=== PATIENT | male | born 1965 | race African-American/Black ===

== ENCOUNTER 2019-04-15 22:04 | Emergency (ER) | payer OTHER ==
[2019-04-16] MEDS ORDERED: IBUPROFEN 600 MG TAB PO STA (00:26)
[2019-04-16] MEDS ORDERED: DIPH,PERTUS(ACELL)TETVAC-LF 0.5 ML VIAL IM ONE (00:30)
[2019-04-16] MEDS ORDERED: LIDOCAINE 1% INJ 10MG/ML (20 ML MDV) SQ ONE (00:38)
--- NOTE | 2019-04-16 01:09 | XR ---
EXAM: XR Right Hand Complete, 3 or More Views CLINICAL HISTORY: Pain. Still mesh cut hand. TECHNIQUE: Frontal, lateral and oblique views of the right hand. COMPARISON: No relevant prior studies available. FINDINGS: Bones/joints: No acute fracture. No dislocation. Soft tissues: Soft tissue defect projecting at base of small finger. No radiopaque foreign body. IMPRESSION: 1. Soft tissue defect projecting at base of right small finger. Correlate clinically. 2. No radiographic evidence of radiopaque foreign body. 3. No acute fracture or dislocation.
[2019-04-16 01:12] VITALS: BP 120/78; PULSE 64; RESP 16; TEMP 97.6
--- NOTE | 2019-04-16 01:14 | ED ---
Wound/Laceration HPI - General Chief Complaint: Wound/Laceration Stated Complaint: finger injury-[facility] Time Seen by Provider: 04/15/19 23:36 Source: patient Mode of arrival: ambulatory Limitations: no limitations - History of Present Illness Initial Comments: 54-year-old male patient presents to the emergency department today for evaluation of laceration to the right hand. Patient states that he was at work when a piece of steel mesh fell on his hand causing a laceration. Patient states he was able to get the bleeding under control. States injury occurred approximately 4 hours ago. Patient states he was able to clean the wound and keep it covered with gauze. Patient is unsure when his last tetanus vaccine was given. Denies any difficulty with range of motion of the hand. Denies any numbness or tingling to the fingers. Denies any other injuries. Patient denies any headache, neck pain, back pain, chest pain, shortness of breath, dizziness, weakness, abdominal pain, nausea, vomiting, or difficulties with bowel movements or urination. - Related Data Home Medications Medication Instructions Recorded Confirmed No Known Home Medications 04/15/19 04/15/19 Allergies Allergy/AdvReac Type Severity Reaction Status Date / Time No Known Allergies Allergy Verified 04/15/19 23:40 Review of Systems ROS Statement: Those systems with pertinent positive or pertinent negative responses have been documented in the HPI. ROS Other: All systems not noted in ROS Statement are negative. Past Medical History Past Medical History: No Reported History History of Any Multi-Drug Resistant Organisms: None Reported Past Surgical History: Orthopedic Surgery Additional Past Surgical History / Comment(s): lt knee Past Psychological History: No Psychological Hx Reported Smoking Status: Current every day smoker Past Alcohol Use History: None Reported Past Drug Use History: None Reported General Exam Limitations: no limitations General appearance: alert, in no apparent distress, other (This is a well- developed, well-nourished adult male patient in no acute distress. Vital signs upon presentation are temperature 98.2F, pulse 72, respirations 20, blood pressure 121/76, pulse ox 96% on room air.) Respiratory exam: Present: normal lung sounds bilaterally. Absent: respiratory distress, wheezes, rales, rhonchi, stridor Cardiovascular Exam: Present: regular rate, normal rhythm, normal heart sounds. Absent: systolic murmur, diastolic murmur, rubs, gallop, clicks Extremities exam: Present: full ROM, normal capillary refill, other (Patient has full range of motion of the fingers on the right hand with and without resistance. Skin is warm and dry. Cap refills less than 3 seconds. There is a 5 cm laceration noted over the palmar surface of the hand over the distal hypothenar eminence. Bleeding is controlled.). Absent: normal inspection, tenderness, pedal edema, joint swelling, calf tenderness Neurological exam: Present: alert, oriented X3, CN II-XII intact Psychiatric exam: Present: normal affect, normal mood Skin exam: Present: warm, dry, intact, normal color. Absent: rash Course Vital Signs 04/15/19 04/16/19 22:13 01:11 Temperature 98.3 F 97.6 F Pulse Rate 72 64 Respiratory 20 16 Rate Blood Pressure 121/76 120/78 O2 Sat by Pulse 96 98 Oximetry Procedures - Laceration Laceration #1 Consent Obtained: verbal consent Indication: laceration Site: hand (Right) Size (cm): 5 Depth: simple, single layer Anesthetic Used: lidocaine 1% Anesthesia Technique: local infiltration Amount (mls): 7 Pre-repair: irrigated extensively Type of Sutures: nylon Size of Sutures: 4-0 Number of Sutures: 6 Technique: simple, interrupted Patient Tolerated Procedure: well, no complications Medical Decision Making - Medical Decision Making 54-year-old male patient presents to the emergency department today for evaluation of laceration to the right hand. Physical examination did reveal 5 cm laceration to the palmar aspect of the right hand over the distal hyperthenar eminence. Laceration was repaired as documented. X-ray was obtained and showed no evidence for foreign body or bony abnormality. Did update tetanus vaccine. Patient be discharged at this time with education regarding wound care and signs or symptoms of infection. He is instructed to have sutures removed in 7 days. He is instructed to follow-up with employee health for further evaluation as soon as possible. Return parameters were discussed in detail. He verbalizes u nderstanding and agrees with this plan. - Radiology Data Radiology results: report reviewed, image reviewed 3 views of the right hand are obtained. Report was reviewed in its entirety. Impression by Dr. Shane shows soft tissue defect projecting at the base of the right small finger. Correlate clinically. No radiographic evidence of radiopaque foreign body. No acute fracture dislocation. Disposition Clinical Impression: Laceration of left hand Disposition: HOME SELF-CARE Condition: Good Instructions (If sedation given, give patient instructions): Care For Your Stitches (ED), Laceration (ED) Additional Instructions: Keep wound clean and dry. Cleanse twice daily with warm water and antibacterial soap. Monitor for signs or symptoms of infection including but not limited to redness, swelling, drainage of pus, fever, or chills. Return here or go tear primary care physician to have stitches removed in 7 days. Return to the emergency department for any other new, worsening, or concerning symptoms Is patient prescribed a controlled substance at d/c from ED?: No Referrals: None,Stated [Primary Care Provider] - 1-2 days Time of Disposition: 01:14
== END 2019-04-16 01:35 | disposition home or self-care (01) ==
LOC: EC 22:04
DX: S61.411A Laceration without foreign body of right hand, initial encounter (principal); F17.200 Nicotine dependence, unspecified, uncomplicated; Z23 Encounter for immunization; W20.8XXA Other cause of strike by thrown, projected or falling object, initial encounter; Y92.69 Other specified industrial and construction area as the place of occurrence of the external cause; Y99.0 Civilian activity done for income or pay
CPT/HCPCS: 73130; 90715; 99283; 12002; 90471; J2001